=== PATIENT | male | born 1995 | race African-American/Black ===

== ENCOUNTER 2020-01-08 18:07 | Emergency (ER) | payer SELFPAY ==
[~2020-01-08] VITALS: Ht 185.4 cm; Wt 130.0 kg
[2020-01-08 18:52] VITALS: BP 132/76
[2020-01-08] MEDS ORDERED: IBUPROFEN 800MG TABLET PO ONE (20:15)
[2020-01-08] MEDS ORDERED: SILVER SULFADIAZINE 1% CREAM 25GM TOP ONE (20:30)
== END 2020-01-08 21:29 | disposition home or self-care (01) ==
LOC: ER 18:07
DX: T24.231A Burn of second degree of right lower leg, initial encounter (principal); T31.0 Burns involving less than 10% of body surface; X16.XXXA Contact with hot heating appliances, radiators and pipes, initial encounter; Y93.I9 Activity, other involving external motion; Y92.488 Other paved roadways as the place of occurrence of the external cause; Y92.89 Other specified places as the place of occurrence of the external cause
CPT/HCPCS: 73590; 73610; 99284

== ENCOUNTER 2020-03-01 09:49 | Emergency (ER) | payer MEDICAID ==
[~2020-03-01] VITALS: Ht 188 cm; Wt 109.0 kg
[2020-03-01 09:54] VITALS: BP 123/84
[2020-03-01] MEDS ORDERED: KETOROLAC 30MG/ML VIAL IM ONE (10:15)
[2020-03-01] MEDS ORDERED: IBUPROFEN 800MG TABLET PO ONE (10:30)
== END 2020-03-01 11:23 | disposition home or self-care (01) ==
LOC: ER 10:02
DX: S40.012A Contusion of left shoulder, initial encounter (principal); W18.30XA Fall on same level, unspecified, initial encounter; Y93.89 Activity, other specified; Y92.89 Other specified places as the place of occurrence of the external cause; Y99.8 Other external cause status
CPT/HCPCS: 73000; 73030; 99284; J1885